=== PATIENT | female | born 1990 | race Caucasian/White ===

== ENCOUNTER → 2019-03-25 | Outpatient (CLI) | payer OTHER | LOC: ULTRA 07:37 | DX: K80.20 Calculus of gallbladder without cholecystitis without obstruction (principal) ==

== ENCOUNTER 2019-05-21 05:20 | Day surgery (SDC) | payer OTHER ==
[~2019-05-21] VITALS: Ht 160 cm; Wt 60.3 kg
[~2019-05-21 05:20] MED LIST: PRENATAL PO
[2019-05-21 15:45] VITALS: BP 100/54
[2019-05-21 16:50] VITALS: BP 100/54
--- NOTE | 2019-05-24 11:29 | O ---
[facility] [place] [address] OPERATIVE REPORT Name: YANI CORTEZ Room #: DEP [facility].#: [id number] Admission: 05/21/19 ������������������ Attend Phys: Navdeep Corona MD Discharge: 05/21/19 ������������������ Date of : 89 Report #: [id number] THIS REPORT FOR: //name// CC: Pawan Corona DATE OF SERVICE: 05/21/2019 PREOPERATIVE DIAGNOSIS: Symptomatic cholelithiasis. POSTOPERATIVE DIAGNOSIS: Symptomatic cholelithiasis. OPERATIVE PROCEDURE: Laparoscopic cholecystectomy. OPERATING SURGEON: Navdeep Corona MD. INDICATIONS FOR THE PROCEDURE: The patient is a 29-year-old female who presented with features of recurrent episodes of right upper quadrant pain. Clinical exam and ultrasound scan that was done showed cholelithiasis. The patient was advised laparoscopic cholecystectomy. The patient showed understanding and agreed to proceed. DESCRIPTION OF PROCEDURE: After explaining to the patient in detail and informed consent was obtained. The patient was identified in the preoperative holding area. The patient was transferred to the operating room and was placed in supine position. Sequential compressive devices were placed for DVT prophylaxis. Preoperative antibiotics were given. After induction of anesthesia, the abdomen was prepped and draped in a sterile fashion. Through a right upper quadrant 1 cm incision and using Optiview technique, peritoneal cavity was entered and pneumoperitoneum was created. Thereafter under direct vision, another 5 mm trocar was placed and through a supraumbilical incision, another 5 mm trocar was placed in the epigastrium and one in the right lateral subcostal region. Upon initial inspection, the patient was noted to have a normal appearing gallbladder. The gallbladder was retracted and the peritoneal reflection along the neck of the gallbladder was gently dissected off. Cystic duct was identified and was isolated from the surrounding structures. Cystic artery was identified and isolated from the surrounding structures. Cystic duct was doubly clipped proximally and single clip applied distally and was then divided. Cystic artery also was then divided in a similar fashion. The gallbladder was gently dissected off the liver bed using hook electrocautery. Absolute hemostasis was achieved. Sterile saline irrigation was given. The gallbladder was retrieved using an EndoCatch through the lateral most incision. Incisions were then closed with 4-0 Monocryl. Dermabond was applied. The patient was stable at the end of the procedure. The patient was woken up from [address] [address] OPERATIVE REPORT Name: YANI CORTEZ Room #: [facility] [id number] Admission: 05/21/19 ������������������ Attend Phys: Navdeep Corona MD Discharge: 05/21/19 ������������������ Date of : 89 Report #: [id number] anesthesia and was transferred to the recovery room in stable condition. ESTIMATED BLOOD LOSS: None. CONDITION OF THE PATIENT: Stable. FLUIDS GIVEN: Per anesthesia notes. SPECIMEN SENT: Gallbladder. COMPLICATIONS: None. ANESTHESIA: General anesthesia. ��������������������������������������������� <ELECTRONICALLY SIGNED> ���������������������������������������� By: Navdeep Corona MD ��������������������������������������������� 05/24/19 1129 [id number] Navdeep Corona MD /nt
--- NOTE | 2019-05-25 10:07 | PATH ---
[facility] [address] [place] [address] PATHOLOGY RPT PROCEDURE Name: YANI CORTEZ Room #: DEP [facility] M.R.#: [id number] ������������������ Admission: 05/21/19 ������������������ Date of : 89 Discharge: 05/21/19 Report #: [id number] Path Case #: [id number] [facility] Accession Number: [id number] . 01 Material submitted: . gallbladder - GALLBLADDER . 01 Clinical history: . Cholecystitis, cholelithiasis. . 02 Diagnosis: Gallbladder, cholecystectomy: - Mild chronic cholecystitis. - Cholelithiasis. 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 02 Electronically signed: . Sarah Abarca MD, Pathologist NPI- [id number] . 01 Gross description: . Received in formalin labeled "Genevieve, Yani, gallbladder" is an intact cholecystectomy specimen measuring 7.5 x 4.5 x 1.5 cm. The serosa is rosenberg-green and smooth and the specimen is opened to reveal dark green and velvety mucosa without polyps or masses. The average wall thickness is 0.1 cm. Calculi are present, which are orange-brown and multifaceted, measuring in aggregate 3.2 x 2.0 x 0.4 cm and ranging from 0.1-0.4 cm in greatest dimension. Ironer sections of the fundus and body and the cystic duct margin are submitted in A1. ([facility]; 05/23/2019) SYC/SYC . 02 Pathologist provided ICD-10: K80.10 . 02 CPT . 895347 Specimen Comment: A courtesy copy of this report has been sent to Specimen Comment: [phone], . Specimen Comment: Report sent to / DR ANTONIO Performed at: [address] [id number] MD Nando Bassett MD Phone: [phone] Performed at: [address] [id number] [address] [address] PATHOLOGY RPT PROCEDURE Name: YANI CORTEZ Room #: DEP [facility]#: [id number] ������������������ Admission: 05/21/19 ������������������ Date of : 89 Discharge: 05/21/19 Report #: [id number] Path Case #: [id number] MD Sarah Abarca MD Phone: [phone]
== END 2019-05-21 18:15 | disposition home or self-care (01) ==
LOC: TBA 05:20 → OR 05:20
DX: K80.10 Calculus of gallbladder with chronic cholecystitis without obstruction (principal); Z98.890 Other specified postprocedural states
CPT/HCPCS: 50010; 50101; 50411; 50555; 51489; 52265; 52266; 54022; 54118; 55245; 56462; 56525; 56526; 57257; 62110; 62900; 70005